=== PATIENT | male | born 1965 | race Caucasian/White ===

== ENCOUNTER 2019-10-25 08:06 | Outpatient (CLI) | payer OTHER, SELFPAY ==
--- NOTE | ~2019-10-25 | XR_ITS ---
XR abdomen/[facility] 1V DATE: 10/25/2019 08:25 INDICATION: Right flank pain TECHNIQUE: AP projection, 2 views COMPARISON: 10/23/2006 [facility] 10/23/[address] renal scan FINDINGS: Bilateral calcified pelvic phleboliths are noted. No apparent urinary tract calcification. The psoas shadows are intact. No visceromegaly is evident. The bowel gas pattern is unremarkable. IMPRESSION: No apparent urinary tract calcified calculus Noncontrast CT abdomen pelvis was more sensitive for detection of kidney stones. Reviewed, dictated and finalized at [facility]. Reviewed, dictated and finalized at [facility]. IMPRESSION: No apparent urinary tract calcified calculus Noncontrast CT abdomen pelvis was more sensitive for detection of kidney stones .
== END 2019-10-25 08:07 ==
PROVIDERS: PCP Family Medicine; Visit Provider Urology
DX: N20.1 Calculus of ureter (principal)
CPT/HCPCS: 74018